=== PATIENT | female | born 1995 | race Caucasian/White ===

== ENCOUNTER 2017-12-25 22:22 | Emergency (ER) | payer BC ==
--- NOTE | 2017-12-25 23:12 | EDM.PDOC ---
ED HPI GENERAL MEDICAL PROBLEM - General Chief Complaint: ENT Problem Stated Complaint: PUPILS ARE DIFFERENT A SIZE Time Seen by Provider: 12/25/17 22:33 Source of Information: Reports: Patient History Limitations: Reports: No Limitations - History of Present Illness INITIAL COMMENTS - FREE TEXT/NARRATIVE: The patient states that her left eye was itching this past 12/21/2017. She instilled Opcon-A eye drops into the left eye. She states that later that day, she found her left eye vision to be blurry, and when she looked in the mirror, she found that her left pupil was larger than her right. Later that day , she had left eye pain and a headache, consistent with her frequent migraines. She took an Imitrex, which improved the pain, and her pupils returned to equal size. On 12/22/2017, she was feeling well until 14:00, when she again developed pain in her left eye along with left sided head pressure. She had a coworker check her pupils, and was told that they were of equal size, but that they both had a "sluggish reaction". On Saturday evening, 12/23/2017, she went to the walk-in clinic. She was not seen, but was directed to the information writer at [facility]. The information writer found that the patient's left pupil was larger than the right, and recommended that the patient follow-up with either neurology or an research development director. On 12/24/2017, the patient states that she saw spots in her periphery. The patient then saw the research development director Dr. Beaulieu, in [place], [facility]. According to the patient, the eye exam is completely normal, with normal eye pressures. The patient states that after her ophthalmologic examination, she. Some eye twitching, occasional lightheadedness, and nausea for about 2 minutes. Tonight, the patient again found her left pupil to be larger than her right, and felt pressure in both of her eyes, prompting her to come to the ED. The patient's PCP was Lisa Velazquez. She does not currently have a PCP. Headache Pain Score (Numeric/FACES): 4 - Related Data Allergies Allergy/AdvReac Type Severity Reaction Status Date / Time No Known Allergies Allergy Verified 11/19/13 11:14 Home Meds: Home Meds Norethindrone-E.estradiol-Iron [Junel Fe 1.5 MG-30 MCG] 1 tab PO BEDTIME [History] Venlafaxine HCl [Venlafaxine ER] 75 mg PO BEDTIME 11/19/13 [History] Venlafaxine HCl [Venlafaxine ER] 150 mg PO BEDTIME 11/19/13 [History] Acetaminophen/HYDROcodone [Lortab 500-10 MG] 1 tab PO ASDIRECTED PRN 11/26/13 [ History] Cefuroxime [Ceftin] 500 mg PO BID 11/26/13 [History] Ondansetron [Zofran] 4 mg BUCCAL Q6H PRN #5 tab 11/26/13 [Rx] Promethazine [Phenergan] 25 mg PO Q4H PRN 11/26/13 [History] metroNIDAZOLE [Flagyl] 500 mg PO Q8H #24 tab 11/26/13 [Rx] Past Medical History Neurological History: Reports: Migraines Psychiatric History: Reports: Anxiety - Past Surgical History HEENT Surgical History: Reports: Oral Surgery (wisdom teeth extraction), Tonsillectomy Social & Family History - Tobacco Use Smoking Status *Q: Never Smoker - Alcohol Use Alcohol Use History: Yes Days Per Week of Alcohol Use: 2 Number of Drinks Per Day: 3 Total Drinks Per Week: 6 Alcohol Use Frequency: Socially - Recreational Drug Use Recreational Drug Use: Yes Drug Use in Last 12 Months: Yes Recreational Drug Type: Reports: Marijuana/Hashish (last smoked 12/21/2017) - Living Situation & Occupation Living situation: Reports: Single, with Significant Other (Boyfriend) 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 ED EXAM, GENERAL - Physical Exam Exam: See Below Exam Limited By: No Limitations General Appearance: Alert, WD/WN, No Apparent Distress Eye Exam: Bilateral Eye: EOMI, Other (right pupil 5 mm, left 6 mm under light conditions, right pupil 7 or 8 mm, left 8 mm under dark conditions) Course - Vital Signs Last Recorded V/S: Last Vital Signs Temp 36.5 C 12/25/17 22:28 Pulse 85 12/25/17 22:28 Resp 18 12/25/17 22:28 BP 147/107 H 12/25/17 22:28 Pulse Ox 98 12/25/17 22:28 - Re-Assessments/Exams Free Text/Narrative Re-Assessment/Exam: 12/25/17 23:04 The patient's right pupil is slightly smaller than her left under light conditions, approximately 5 mm versus 6 mm, and approximately 7 mm versus [address] conditions, although both pupils respond to light and could have been the same size at 8 mm. This vaguely suggests a parasympathetic lesion on the left eye, however, since both of the pupils respond to light, and the fact that the anticipatory it is episodic, I doubt that there is a third cranial nerve lesion. It is doubtful that this is the result of the Opcon-A eye drops that the patient placed in her left eye on Saturday, either, as anisocoria is not a known side effect of that medicine. I think it is far more likely that what we are witnessing is due to migraine. In every case when the patient has experienced this, she has also had at least some headache or facial pressure. The patient states that she has never had an imaging study of her head - either CT or MRI. I think the patient would benefit from an imaging study of her head, but given her young age, I think a MRI would be preferable. I will therefore refer the patient to Myra Hdz, who can order an outpatient MRI of the head. Departure - Departure Time of Disposition: 23:12 Disposition: Home, Self-Care 01 Condition: Good Clinical Impression: Episodic anisocoria - Discharge Information *PRESCRIPTION DRUG MONITORING PROGRAM REVIEWED*: Not Applicable *COPY OF PRESCRIPTION DRUG MONITORING REPORT IN PATIENT HODAN: Not Applicable Referrals: Myra Hdz PA [Physician Picker / Packer] - Forms: ED Department Discharge Additional Instructions: You were seen in the emergency room for episodes of unequal pupils, a condition known as anisocoria. Based on your history and physical examination, your anisocoria is MOST LIKELY due to a migraine, and less likely due to a problem with your third cranial nerve. Nevertheless, we recommend that you get an outpatient MRI of your head. Please follow-up with Myra Hdz in the clinic. She can be your new PCP, and can order an outpatient MRI of your head. If any other problems, please do not hesitate to return to the ER.
== END 2017-12-25 23:21 | disposition home or self-care (01) ==
LOC: JD.ED 22:22
DX: H57.02 Anisocoria (principal)
CPT/HCPCS: 99283

== ENCOUNTER 2018-01-02 22:33 | Emergency (ER) | payer BC ==
--- NOTE | 2018-01-02 23:23 | EDM.PDOC ---
ED HPI GENERAL MEDICAL PROBLEM - General Chief Complaint: ENT Problem Stated Complaint: EYE PROBLEM Time Seen by Provider: 01/02/18 22:46 Source of Information: Reports: Patient, Old Records (ED 12/25/2017), RN Notes Reviewed History Limitations: Reports: No Limitations - History of Present Illness INITIAL COMMENTS - FREE TEXT/NARRATIVE: The patient was seen by me in this ED on 12/25/2017 with a complaint of left anisocoria. It was very subtle on physical examination, and the patient had pupillary reaction to light in both eyes, which spoke against a third cranial nerve palsy. Because the patient had at least some headache or facial pressure whenever she experienced the ansocoria, I suspected that a migraine was likely responsible for it. I recommended a outpatient MRI of the head, and referred her to Myra Hdz. The patient states that she followed up with Ms. Hdz this past Saturday, 2017. She states that work was done, which was all normal, and a outpatient MRI was scheduled for this coming 01/08/2018. She states that a prescription for Imitrex 25 mg was written, however, she has not yet filled the prescription. The patient now returns to the ED stating that she saw some flashing white lights in her right eye and then both eyes this afternoon, that her left pupil has been getting larger and smaller both last week and again today, and she had a headache this morning. She also reports bilateral ear aches this morning, but not associated with the headache. She also reports left eye pain this morning, as well. Left Eye Pain Score (Numeric/FACES): 1 - Related Data Allergies Allergy/AdvReac Type Severity Reaction Status Date / Time No Known Allergies Allergy Verified 01/02/18 22:48 Home Meds: Home Meds . [No Known Home Meds] 01/02/18 [History] Past Medical History Neurological History: Reports: Migraines Psychiatric History: Reports: Anxiety - Past Surgical History HEENT Surgical History: Reports: Oral Surgery (wisdom teeth extraction), Tonsillectomy Social & Family History - Tobacco Use Smoking Status *Q: Never Smoker - Caffeine Use Caffeine Use: Reports: Soda - Alcohol Use Alcohol Use History: Yes Alcohol Use Frequency: Socially - Recreational Drug Use Recreational Drug Use: Yes Drug Use in Last 12 Months: Yes Recreational Drug Type: Reports: Marijuana/Hashish (last smoked 12/28/2017) Recreational Drug Use Frequency: Weekly - Living Situation & Occupation Living situation: Reports: Single, with Significant Other (Boyfriend) 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 ED EXAM, GENERAL - Physical Exam Exam: See Below Exam Limited By: No Limitations General Appearance: Alert, WD/WN, No Apparent Distress Eye Exam: Bilateral Eye: EOMI, Normal Inspection (Pupils 7 mm bilaterally), PERRL Nose: Normal Inspection Throat/Mouth: Normal Inspection, Normal Lips, Normal Voice, No Airway Compromise Head: Atraumatic, Normocephalic Neck: Normal Inspection, Full Range of Motion Respiratory/Chest: No Respiratory Distress, Lungs Clear, Normal Breath Sounds, No Accessory Muscle Use Cardiovascular: Normal Peripheral Pulses, Regular Rate, Rhythm, No Edema, No Gallop, No JVD, No Murmur, No Rub Peripheral Pulses: 4+: Radial (L), Radial (R) GI/Abdominal: Normal Bowel Sounds, Soft, Non-Tender, No Organomegaly, No Distention, No Abnormal Bruit, No Mass (Female) Exam: Deferred Rectal (Female) Exam: Deferred Extremities: Normal Inspection, Normal Range of Motion, No Pedal Edema, Normal Capillary Refill Neurological: Alert, Oriented, CN II-XII Intact, Normal Cognition, No Motor/ Sensory Deficits Psychiatric: Normal Affect Skin Exam: Warm, Dry, Intact, Normal Color, No Rash Course - Vital Signs Last Recorded V/S: Last Vital Signs Temp 36.3 C 01/02/18 22:43 Pulse 73 01/02/18 22:43 Resp 18 01/02/18 22:43 BP 138/96 H 01/02/18 22:43 Pulse Ox 100 01/02/18 22:43 - Re-Assessments/Exams Free Text/Narrative Re-Assessment/Exam: 01/02/18 23:17 The patient re-presents to the ED with a complaint of her left pupil changing size, along with seeing flashing lights, headache, an earache, and left eye pain. As was the case when I saw the patient on 12/25/2017, I suspect that her symptoms are due to a migraine, and while the patient has been prescribed Imitrex, she has not filled the prescription. She has a MRI scheduled for 01/08/2018. As before, I think a MRI is an appropriate test, as it has high sensitivity and no risk of radiation. I do not think that we can justify a CT scan of the head tonight, as she is asymptomatic and her physical examination at this time is completely normal, therefore it is highly unlikely that a CT scan would change her immediate management, and at the same time would expose her to avoidable radiation. At this time, I do not see a reason to change the current plan of evaluation. Departure - Departure Time of Disposition: 23:20 Disposition: Home, Self-Care 01 Condition: Good Clinical Impression: Episodic anisocoria - Discharge Information *PRESCRIPTION DRUG MONITORING PROGRAM REVIEWED*: Not Applicable *COPY OF PRESCRIPTION DRUG MONITORING REPORT IN PATIENT HODAN: Not Applicable Instructions: Migraine Headache, [id number]-[id number] Referrals: Myra Hdz PA [Primary Care Provider] - Forms: ED Department Discharge Additional Instructions: You were seen in the emergency room for continued episodes of your left pupil changing sizes, along with episodes of seeing flashing lights, a headache, earache, and left eye pain. Based on your history and physical examination, your symptoms are MOST LIKELY due to a migraine. We recommend that you fill your prescription for Imitrex and take it as prescribed. We recommend that you undergo the MRI of your head as currently scheduled on 01/08/2018. If any other problems, please do not hesitate to return to the ER.
== END 2018-01-02 23:42 | disposition home or self-care (01) ==
LOC: JD.ED 22:33
DX: H57.02 Anisocoria (principal)
CPT/HCPCS: 99283

== ENCOUNTER 2020-03-01 06:32 | Inpatient (IN) | payer BC, MEDICAID ==
[~2020-03-01 06:32] MED LIST: Bupivacaine 0.25% 10 ML SDV ONE; ePHEDrine Sulfate/0.9% NaCl/Pf 25 MG/5 ML SYRINGE IV ONE
[2020-03-01] MEDS ORDERED: Nalbuphine 10 MG/1 ML Vial IVPUSH PRN (06:57)
[2020-03-01] MEDS ORDERED: Ondansetron 4 MG/2 ML SDV IVPUSH PRN (06:57)
[2020-03-01] MEDS ORDERED: Sodium Chloride 0.9% 10 ML Syringe FLUSH PRN (06:57)
--- NOTE | 2020-03-01 06:58 | PCM.LDHP ---
L&D History of Present Illness - General Date of Service: 03/01/20 Admit Problem/Dx: Patient Status Order with Admit Dx/Problem 03/01/20 06:44 Patient Status [ADT] Routine Admission Diagnosis/Problem Admission Diagnosis/Problem Source of Information: Patient History Limitations: Reports: No Limitations - History of Present Illness Introduction:: Patient is a 24 y/o at 39 3/7 wks who presents in early labor. Yesterday in clinic was checked and found to be about 3 cm dilated. Requested membrane sweeping which was done. States contractions started at 6 PM. Moderate in intensity. Some on and off wetness. 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 Para: 0 Neurological History: Reports: Migraines Psychiatric History: Reports: Anxiety, Depression - Past Surgical History HEENT Surgical History: Reports: Oral Surgery (wisdom teeth extraction), Tonsillectomy Musculoskeletal Surgical History: Reports: Other (See Below) (wrist surgery) Social & Family History - Tobacco Use Tobacco Use Status *Q: Never Tobacco User - Caffeine Use Caffeine Use: Reports: Soda - Alcohol Use Alcohol Use History: No - Recreational Drug Use Recreational Drug Use: No - Living Situation & Occupation Living situation: Reports: Single, with Significant Other (Boyfriend) 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[employer]) H&P Review of Systems - Review of Systems: Review Of Systems: See Below General: Reports: No Symptoms Pulmonary: Reports: No Symptoms Cardiovascular: Reports: No Symptoms Gastrointestinal: Reports: Abdominal Pain (contractions ) Genitourinary: Reports: No Symptoms Musculoskeletal: Reports: No Symptoms Psychiatric: Reports: No Symptoms Neurological: Reports: No Symptoms L&D Exam - Exam Exam: See Below - Vital Signs Vital Signs: Last Vital Signs Temp 36.6 C 03/01/20 06:44 Pulse 84 03/01/20 06:44 Resp 16 03/01/20 06:44 BP 129/75 03/01/20 06:44 Pulse Ox 99 03/01/20 06:44 Weight: 90.809 kg - OB Specific Contraction Intensity: Mild to Moderate Movement: Active Heart Tones: Present Heart Tones per Min: 135 Heart Rate (FHR) Variability: Moderate (6-25 bmp) Presentation: Vertex - Ybarra Score Ybarra Score Cervix Position: Midposition Ybarra Score Consistency: Soft Ybarra Score Effacement: 51-70% Ybarra Score Dilation: 3-4 cm (4-5) Ybarra Score Infant's Station: -3 Ybarra Score Total: 7 - Exam General: Alert, Oriented, Cooperative Lungs: Clear to Auscultation, Normal Respiratory Effort Cardiovascular: Regular Rate, Regular Rhythm GI/Abdominal Exam: Soft, Non-Tender Genitourinary: Normal external exam Back Exam: Normal Inspection Extremities: Normal Inspection Skin: Warm, Dry, Intact - Patient Data Result Diagrams: 03/01/20 07:06 - Problem List (1) 39 weeks gestation of SNOMED Code(s): 39101121 ICD Code: Z3A.39 - 39 WEEKS GESTATION OF Status: Acute Current Visit: Yes (2) Rh negative state in antepartum period SNOMED Code(s): 512901533 ICD Code: O26.899 - OTH RELATED CONDITIONS, UNSPECIFIED TRIMESTER; Z67.91 - UNSPECIFIED BLOOD TYPE, RH NEGATIVE Status: Acute Current Visit: Yes Problem List Initiated/Reviewed/Updated: Yes Orders Last 24hrs: Active Orders 24 hr Category Date Time Status Patient Status [ADT] Routine ADT 03/01/20 06:44 Active Activity as Tolerated [RC] PFP Care 03/01/20 06:57 Ordered Communication Order [RC] ASDIRECTED Care 03/01/20 06:57 Ordered Heart Tones [RC] ASDIRECTED Care 03/01/20 06:57 Ordered Non Stress Test [RC] PER UNIT ROUTINE Care 03/01/20 06:44 Active Non Stress Test [RC] PER UNIT ROUTINE Care 03/01/20 06:57 Ordered Notify Provider [RC] PFP Care 03/01/20 06:57 Ordered Notify Provider [RC] PRN Care 03/01/20 06:57 Ordered Peripheral IV Care [RC] . DIRECTED Care 03/01/20 06:57 Ordered Vital Signs [RC] PER UNIT ROUTINE Care 03/01/20 06:44 Active Vital Signs [RC] PER UNIT ROUTINE Care 03/01/20 06:57 Ordered Regular Diet [DIET] Diet 03/01/20 Breakfast Ordered AMNISURE RUPTURE MEMBRAN [BF] Stat Lab 03/01/20 06:44 Ordered CBC W/O DIFF,HEMOGRAM [HEME] Routine Lab 03/01/20 06:57 Ordered RAPID PLASMA REAGIN,RPR [CHEM] Routine Lab 03/01/20 06:57 Ordered TYPE AND SCREEN [BBK] Routine Lab 03/01/20 06:57 Ordered Lactated Ringers [Ringers, Lactated] 1,000 ml Med 03/01/20 07:00 Ordered IV ASDIRECTED Nalbuphine [Nubain] Med 03/01/20 06:57 Ordered 10 mg IVPUSH Q2H PRN Ondansetron [Zofran] Med 03/01/20 06:57 Ordered 4 mg IVPUSH Q4H PRN Oxytocin/Lactated Ringers [Pitocin in LR 10 Units/1,000 Med 03/01/20 07:00 Ordered ML] 10 unit in 1,000 ml IV .CONTINUOUS Sodium Chloride 0.9% [Saline Flush] Med 03/01/20 06:57 Ordered 10 ml FLUSH ASDIRECTED PRN Electronic Heart Tones Ext w TOCO [WOMSER] Oth 03/01/20 06:57 Ordered Routine Electronic Heart Tones Internal [WOMSER] Per Unit Oth 03/01/20 06:57 Ordered Routine Peripheral IV Insertion Adult [OM.PC] Routine Oth 03/01/20 06:57 Ordered Resuscitation Status Routine Resus Stat 03/01/20 06:44 Ordered Assessment/Plan Comment:: * Amnisure done and negative, but with good change from yesterday clinic appt * Will allow pt to continue to labor on own. If needed can consider augmentation with AROM * Labs * GBS negative * Pain management per patient preference * Anticipate
[2020-03-01] MEDS ORDERED: Oxytocin/Lactated Ringers 10 UNIT/1,000 ML BAG IV SCH ×2 (07:00→15:00)
[2020-03-01] MEDS ORDERED: Bupivacaine/fentaNYL/NS 100 ML Bag EPIDUR PRN (07:21)
[2020-03-01] MEDS ORDERED: ePHEDrine 50 MG/ML SDV IVPUSH PRN (07:21)
[2020-03-01] MEDS ORDERED: fentaNYL 100 MCG/2 ML SDV EPIDUR PRN (07:21)
[2020-03-01] MEDS ORDERED: diphenhydrAMINE 50 MG/ML SDV IVPUSH PRN (07:21)
[2020-03-01] MEDS: Lactated Ringers 1,000 ML IV SCH ×4 (12:15→14:35)
--- NOTE | 2020-03-01 13:21 | PCM.PREANE ---
Preanesthetic Assessment - Procedure Proposed Procedure: Epidural - Anesthesia/Transfusion/Family Hx Anesthesia History: Prior Anesthesia Without Reaction Family History of Anesthesia Reaction: No Transfusion History: No Prior Transfusion(s) - Review of Systems General: Fatigue Pulmonary: No Symptoms Cardiovascular: No Symptoms Gastrointestinal: Abdominal Pain (labor) Neurological: No Symptoms Other: Reports: None - Physical Assessment Vital Signs: Last Vital Signs Temp 36.6 C 03/01/20 06:44 Pulse 84 03/01/20 06:44 Resp 16 03/01/20 06:44 BP 129/75 03/01/20 06:44 Pulse Ox 99 03/01/20 06:44 Height: 1.63 m Weight: 90.809 kg ASA Class: 2 Mental Status: Alert & Oriented x3 Airway Class: Mallampati = 1 Dentition: Reports: Normal Dentition Thyro-Mental Finger Breadths: 3 Mouth Opening Finger Breadths: 3 ROM/Head Extension: Full Lungs: Clear to Auscultation, Normal Respiratory Effort Cardiovascular: Regular Rate, Regular Rhythm - Lab Values: Laboratory Last Values WBC 13.33 K/mm3 (3.98-10.04) H 03/01/20 07:06 RBC 3.93 M/mm3 (3.98-5.22) L 03/01/20 07:06 Hgb 10.9 gm/dl (11.2-15.7) L D 03/01/20 07:06 Hct 33.8 % (34.1-44.9) L 03/01/20 07:06 MCV 86.0 fl (79.4-94.8) D 03/01/20 07:06 MCH 27.7 pg (25.6-32.2) 03/01/20 07:06 MCHC 32.2 g/dl (32.2-35.5) 03/01/20 07:06 RDW Std Deviation 42.3 fL (36.4-46.3) 03/01/20 07:06 Plt Count 309 K/mm3 (182-369) 03/01/20 07:06 MPV 9.8 fl (9.4-12.3) 03/01/20 07:06 Membrane Rupture Negative 03/01/20 06:51 SARS-CoV-2 RNA (NALLELY) Negative (NEGATIVE) 03/01/20 07:23 Blood Type AB NEGATIVE 03/01/20 07:06 Gel Antibody Screen Positive 03/01/20 07:06 - Allergies Allergies/Adverse Reactions: Allergies Allergy/AdvReac Type Severity Reaction Status Date / Time No Known Allergies Allergy Verified 03/01/20 06:45 - Anesthesia Plan Pre-Op Medication Ordered: None - Acknowledgements Anesthesia Type Planned: Epidural Pt an Appropriate Candidate for the Planned Anesthesia: Yes Alternatives and Risks of Anesthesia Discussed w Pt/Guardian: Yes Pt/Guardian Understands and Agrees with Anesthesia Plan: Yes PreAnesthesia Questionnaire Gastrointestinal History: Reports: GERD 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: Neurological History: Reports: Migraines Psychiatric History: Reports: Anxiety, Depression Endocrine/Metabolic History: Reports: Obesity/BMI 30+ - Past Surgical History HEENT Surgical History: Reports: Oral Surgery (wisdom teeth extraction), Tonsillectomy Musculoskeletal Surgical History: Reports: Other (See Below) (wrist surgery) - SUBSTANCE USE Tobacco Use Status *Q: Never Tobacco User Second Hand Smoke Exposure: No Recreational Drug Use History: No - HOME MEDS Home Medications: Home Meds Vits #93/Iron Fum/FA [ Formula Tablet] 1 tab PO DAILY 03/01/20 [History] - CURRENT (IN HOUSE) MEDS Current Meds: Current Medications Diphenhydramine HCl (Benadryl) 25 mg IVPUSH Q6H PRN PRN Reason: pruritis Ephedrine Sulfate (Ephedrine Sulfate) 5 mg IVPUSH ASDIRECTED PRN PRN Reason: Hypotension Fentanyl (Sublimaze) 100 mcg EPIDUR Q3H PRN PRN Reason: Pain Last Admin: 03/01/20 12:56 Dose: 100 mcg Documented by: Fentanyl/Bupivacaine HCl (Fentanyl/Bupivacaine/Ns 2 Mcg-0.125% 100 Ml) 100 ml EPIDUR ASDIRECTED PRN PRN Reason: Pain Last Admin: 03/01/20 12:56 Dose: 100 ml Documented by: Lactated Ringer's (Ringers, Lactated) 1,000 mls @ 100 mls/hr IV ASDIRECTED TRINITY Last Admin: 03/01/20 12:57 Dose: 999 mls/hr Documented by: Oxytocin/Lactated Ringer's (Pitocin In Lr 10 Units/1,000 Ml) 10 unit in 1,000 mls @ 500 mls/hr IV .CONTINUOUS TRINITY Nalbuphine HCl (Nubain) 10 mg IVPUSH Q2H PRN PRN Reason: Pain Ondansetron HCl (Zofran) 4 mg IVPUSH Q4H PRN PRN Reason: Nausea/Vomiting Sodium Chloride (Saline Flush) 10 ml FLUSH ASDIRECTED PRN PRN Reason: Keep Vein Open
--- NOTE | 2020-03-01 20:31 | PCM.DEL ---
L & D Note - General Info Date of Service: 03/01/20 - Delivery Note Labor: Augmented by ARM, Augmented by Oxytocin Delivery Outcome: Livebirth Infant Delivery Method: Spontaneous Vaginal Delivery-Single Delivery Mode: Spontaneous Presentation: Right Occiput Anterior ([place]) Nuchal Cord: Present, Reduced Anesthesia Type: Epidural Amniotic Fluid Description: Clear Episiotomy Type: None Laceration: None Placenta: Intact, Spontaneous Cord: 3 Vessels Estimated Blood Loss: 200 : Bulb Syringe, Stimulated, Warmed, [place] Used, Warmer Used Delivery Comments (Free Text/Narrative):: Patient found to be complete and began pushing. With maternal pushing effort head delivered from an [place] presentation. Nuchal cord present and reduced. With gentle downward traction the shoulders and body delivered. placed on maternal abdomen. Cord clamped and cut. Cord blood obtained. Placenta allowed time to separate and expelled intact. Inspection of perineum showed no lacerations - General Info Date of Service: 03/01/20 - Patient Data Vitals - Most Recent: Last Vital Signs Temp 36.6 C 03/01/20 06:44 Pulse 84 03/01/20 06:44 Resp 16 03/01/20 06:44 BP 129/75 03/01/20 06:44 Pulse Ox 99 03/01/20 06:44 Weight - Most Recent: 90.809 kg I&O - Last 24 Hours: Intake & Output 03/01/20 03/01/20 03/01/20 06:59 14:59 22:59 Intake Total 240 4000 Output Total 1150 Balance 240 2850 Med Orders - Current: - Problem List & Annotations (1) 39 weeks gestation of SNOMED Code(s): 42194591 Code(s): Z3A.39 - 39 WEEKS GESTATION OF Status: Acute Current Visit: Yes (2) Rh negative state in antepartum period SNOMED Code(s): 557382630 Code(s): O26.899 - OTH RELATED CONDITIONS, UNSPECIFIED TRIMESTER; Z67.91 - UNSPECIFIED BLOOD TYPE, RH NEGATIVE Status: Acute Current Visit: Yes (3) Vaginal delivery SNOMED Code(s): 877489409 Code(s): O80 - ENCOUNTER FOR FULL-TERM UNCOMPLICATED DELIVERY Status: Acute Current Visit: Yes - Problem List Review Problem List Initiated/Reviewed/Updated: Yes - My Orders Last 24 Hours: My Active Orders 03/01/20 06:44 Patient Status [ADT] Routine Non Stress Test [RC] PER UNIT ROUTINE Vital Signs [RC] PER UNIT ROUTINE Resuscitation Status Routine 03/01/20 06:57 Activity as Tolerated [RC] PFP Communication Order [RC] ASDIRECTED Heart Tones [RC] ASDIRECTED Non Stress Test [RC] PER UNIT ROUTINE Notify Provider [RC] PFP Notify Provider [RC] PRN Peripheral IV Care [RC] . DIRECTED Vital Signs [RC] PER UNIT ROUTINE Nalbuphine [Nubain] 10 mg IVPUSH Q2H PRN Ondansetron [Zofran] 4 mg IVPUSH Q4H PRN Sodium Chloride 0.9% [Saline Flush] 10 ml FLUSH ASDIRECTED PRN Electronic Heart Tones Ext w TOCO [WOMSER] Routine Electronic Heart Tones Internal [WOMSER] Per Unit Routine Peripheral IV Insertion Adult [OM.PC] Routine 03/01/20 Breakfast Regular Diet [DIET] Lactated Ringers [Ringers, Lactated] 1,000 ml IV ASDIRECTED Oxytocin/Lactated Ringers [Pitocin in LR 10 Units/1,000 ML] 10 unit in 1,000 ml IV .CONTINUOUS 03/01/20 07:06 ANTIBODY IDENTIFICATION [BBK] Routine RAPID PLASMA REAGIN,RPR [CHEM] Routine TYPE AND SCREEN [BBK] Routine 03/01/20 12:26 Admission Status [Patient Status] [ADT] Routine 03/01/20 15:00 Oxytocin/Lactated Ringers [Pitocin in LR 10 Units/1,000 ML] 10 unit in 1,000 ml IV TITRATE - Assessment Assessment:: PPD#0 - Plan Plan:: * Routine cares * Breast feeding * Discharge home in 1-2 days
[2020-03-01] MEDS ORDERED: Benzocaine/Menthol 20%-0.5% Spray 56 GM Canister TOP PRN (20:59)
[2020-03-01] MEDS ORDERED: Docusate Sodium 100 MG Cap PO PRN (20:59)
[2020-03-01] MEDS: Witch Hazel Medicated Pads 40/Jar TOP PRN (22:09)
[2020-03-01] MEDS: Ibuprofen 600 MG Tab PO PRN (22:16)
[2020-03-02] MEDS: Acetaminophen 325 MG Tab PO PRN ×4 (01:55→22:35)
[2020-03-02] MEDS: Ibuprofen 600 MG Tab PO PRN ×3 (05:48→19:35)
--- NOTE | 2020-03-02 07:08 | PCM.PNPP ---
- General Info Date of Service: 03/02/20 Functional Status: Reports: Pain Controlled, Tolerating Diet, Ambulating, Urinating - Review of Systems General: Reports: No Symptoms Pulmonary: Reports: No Symptoms Cardiovascular: Reports: No Symptoms Gastrointestinal: Reports: No Symptoms Genitourinary: Reports: Other (some perineal discomfort ) Musculoskeletal: Reports: Back Pain Neurological: Reports: No Symptoms - Patient Data Vital Signs - Most Recent: Last Vital Signs Temp 36.9 C 03/02/20 02:11 Pulse 88 03/02/20 02:11 Resp 18 03/02/20 02:11 BP 122/73 03/02/20 02:11 Pulse Ox 98 03/02/20 02:11 Weight - Most Recent: 90.809 kg I&O - Last 24 Hours: Intake & Output 03/01/20 03/02/20 03/02/20 22:59 06:59 14:59 Intake Total 5000 Output Total 1150 Balance 3850 Lab Results - Last 24 Hours: Laboratory Results - last 24 hr 03/01/20 03/01/20 03/01/20 Range/Units 06:51 07:06 07:06 WBC 13.33 H (3.98-10.04) K/mm3 RBC 3.93 L (3.98-5.22) M/mm3 Hgb 10.9 L D (11.2-15.7) gm/dl Hct 33.8 L (34.1-44.9) % MCV 86.0 D (79.4-94.8) fl MCH 27.7 (25.6-32.2) pg MCHC 32.2 (32.2-35.5) g/dl RDW Std Deviation 42.3 (36.4-46.3) fL Plt Count 309 (182-369) K/mm3 MPV 9.8 (9.4-12.3) fl Membrane Rupture Negative RPR Non-reactive (NONREACTIVE) SARS-CoV-2 RNA (NALLELY) (NEGATIVE) Blood Type Gel Antibody Screen 03/01/20 03/01/20 Range/Units 07:06 07:23 WBC (3.98-10.04) K/mm3 RBC (3.98-5.22) M/mm3 Hgb (11.2-15.7) gm/dl Hct (34.1-44.9) % MCV (79.4-94.8) fl MCH (25.6-32.2) pg MCHC (32.2-35.5) g/dl RDW Std Deviation (36.4-46.3) fL Plt Count (182-369) K/mm3 MPV (9.4-12.3) fl Membrane Rupture RPR (NONREACTIVE) SARS-CoV-2 RNA (NALLELY) Negative (NEGATIVE) Blood Type AB NEGATIVE Gel Antibody Screen Positive Med Orders - Current: Current Medications Acetaminophen (Tylenol) 650 mg PO Q4H PRN PRN Reason: mild pain or fever Last Admin: 03/02/20 01:55 Dose: 650 mg Documented by: Benzocaine/Menthol (Dermoplast Pain Relief [place]) 0 gm TOP ASDIRECTED PRN PRN Reason: Perineal Comfort Measure Last Admin: 03/01/20 22:08 Dose: 1 applic Documented by: Docusate Sodium (Colace) 100 mg PO BID PRN PRN Reason: Constipation Ibuprofen (Motrin) 600 mg PO Q6H PRN PRN Reason: Mild pain or fever Last Admin: 03/02/20 05:48 Dose: 600 mg Documented by: Andra Gonzalez (Christian) 1 pad TOP ASDIRECTED PRN PRN Reason: Perineal Comfort Measure Last Admin: 03/01/20 22:09 Dose: 1 applic Documented by: Discontinued Medications Diphenhydramine HCl (Benadryl) 25 mg IVPUSH Q6H PRN PRN Reason: pruritis Ephedrine Sulfate (Ephedrine Sulfate) 5 mg IVPUSH ASDIRECTED PRN PRN Reason: Hypotension Fentanyl (Sublimaze) 100 mcg EPIDUR Q3H PRN PRN Reason: Pain Last Admin: 03/01/20 12:56 Dose: 100 mcg Documented by: Fentanyl/Bupivacaine HCl (Fentanyl/Bupivacaine/Ns 2 Mcg-0.125% 100 Ml) 100 ml EPIDUR ASDIRECTED PRN PRN Reason: Pain Last Admin: 03/01/20 12:56 Dose: 100 ml Documented by: Lactated Ringer's (Ringers, Lactated) 1,000 mls @ 100 mls/hr IV ASDIRECTED TRINITY Last Admin: 03/01/20 14:35 Dose: 999 mls/hr Documented by: Oxytocin/Lactated Ringer's (Pitocin In Lr 10 Units/1,000 Ml) 10 unit in 1,000 mls @ 500 mls/hr IV .CONTINUOUS TRINITY Oxytocin/Lactated Ringer's (Pitocin In Lr 10 Units/1,000 Ml) 10 unit in 1,000 mls @ 12 mls/hr IV TITRATE TRINITY; Protocol Last Titration: 03/01/20 20:21 Dose: 83.33 munits/min, 499.98 mls/hr Documented by: Nalbuphine HCl (Nubain) 10 mg IVPUSH Q2H PRN PRN Reason: Pain Ondansetron HCl (Zofran) 4 mg IVPUSH Q4H PRN PRN Reason: Nausea/Vomiting Sodium Chloride (Saline Flush) 10 ml FLUSH ASDIRECTED PRN PRN Reason: Keep Vein Open - Infant Interaction Infant Disposition, : [place] in Room with Family Interaction: Holding Feeding: Attempted ; Nursed Fair/Poor Support Person: Significant Other - Recovery Exam Fundal Tone: Firm Fundal Level: At Umbilicus Fundal Placement: Midline Lochia Amount: Small, Moderate Lochia Color: Rubra/Red Perineum Description: Intact, Minimal Bruising/Swelling, Edematous Episiotomy/Laceration: None Bladder Status: Voiding - Exam General: Alert, Oriented, Cooperative GI/Abdominal Exam: Soft, Non-Tender Extremities: Normal Inspection Skin: Warm, Dry, Intact - Problem List & Annotations (1) 39 weeks gestation of SNOMED Code(s): 40907000 Code(s): Z3A.39 - 39 WEEKS GESTATION OF Status: Acute Current Visit: Yes (2) Rh negative state in antepartum period SNOMED Code(s): 390409215 Code(s): O26.899 - OTH RELATED CONDITIONS, UNSPECIFIED TRIMESTER; Z67.91 - UNSPECIFIED BLOOD TYPE, RH NEGATIVE Status: Acute Current Visit: Yes (3) Vaginal delivery SNOMED Code(s): 271250433 Code(s): O80 - ENCOUNTER FOR FULL-TERM UNCOMPLICATED DELIVERY Status: Acute Current Visit: Yes - Problem List Review Problem List Initiated/Reviewed/Updated: Yes - My Orders Last 24 Hours: My Active Orders 03/01/20 06:44 Resuscitation Status Routine 03/01/20 07:06 ANTIBODY IDENTIFICATION [BBK] Routine SCREEN [BBK] Routine RH IMMUNE GLOBULIN [BBK] Routine TYPE AND SCREEN [BBK] Routine 03/01/20 Dinner Regular Diet [DIET] 03/01/20 20:59 Acetaminophen [TylenoL] 650 mg PO Q4H PRN Benzocaine/Menthol [Dermoplast Pain Relief [place]] See Dose Instructions TOP ASDIRECTED PRN Docusate Sodium [Colace] 100 mg PO BID PRN Ibuprofen [Motrin] 600 mg PO Q6H PRN witch Fabiano [Tucks] 1 pad TOP ASDIRECTED PRN Heat Therapy [OM.PC] PRN 03/01/20 20:59 Activity as Tolerated [RC] PER UNIT ROUTINE Vital Signs [RC] 03,09,15,21 Assess Lochia [WOMSER] Per Unit Routine Assess Uterine Involution [WOMSER] Per Unit Routine Breast Pump [WOMSER] Per Unit Routine Ice Therapy [OM.PC] Per Unit Routine Perineal Care [OM.PC] Per Unit Routine Peripheral IV Discontinue [OM.PC] Routine Sitz Bath [OM.PC] Per Unit Routine 03/02/20 20:59 Heat Therapy [OM.PC] PRN - Assessment Assessment:: PPD#1 - Plan Plan:: * Routine cares * Breast feeding * Discharge home tomorrow
[2020-03-02] MEDS: Witch Hazel Medicated Pads 40/Jar TOP PRN (19:48)
[2020-03-03] MEDS: Ibuprofen 600 MG Tab PO PRN ×3 (01:33→14:33)
[2020-03-03] MEDS: Acetaminophen 325 MG Tab PO PRN ×2 (03:01→13:24)
--- NOTE | 2020-03-03 07:16 | PCM.PNPP ---
- General Info Date of Service: 03/03/20 Functional Status: Reports: Pain Controlled, Tolerating Diet, Ambulating, Urinating - Review of Systems General: Reports: No Symptoms Pulmonary: Reports: No Symptoms Cardiovascular: Reports: No Symptoms Gastrointestinal: Reports: No Symptoms Genitourinary: Reports: No Symptoms Musculoskeletal: Reports: No Symptoms Neurological: Reports: No Symptoms Psychiatric: Reports: No Symptoms - Patient Data Vital Signs - Most Recent: Last Vital Signs Temp 36.1 C 03/03/20 02:47 Pulse 88 03/03/20 02:47 Resp 14 03/03/20 02:47 BP 116/68 03/03/20 02:47 Pulse Ox 95 03/03/20 02:47 Weight - Most Recent: 90.809 kg I&O - Last 24 Hours: Intake & Output 03/02/20 03/03/20 03/03/20 22:59 06:59 14:59 Intake Total 240 Balance 240 Lab Results - Last 24 Hours: Laboratory Results - last 24 hr 03/01/20 Range/Units 07:06 Blood Type AB NEGATIVE Gel Antibody Screen Positive Screen 1 ros/5 flds - neg RhIG Candidate? Yes Med Orders - Current: Current Medications Acetaminophen (Tylenol) 650 mg PO Q4H PRN PRN Reason: mild pain or fever Last Admin: 03/03/20 03:01 Dose: 650 mg Documented by: Benzocaine/Menthol (Dermoplast Pain Relief [place]) 0 gm TOP ASDIRECTED PRN PRN Reason: Perineal Comfort Measure Last Admin: 03/01/20 22:08 Dose: 1 applic Documented by: Docusate Sodium (Colace) 100 mg PO BID PRN PRN Reason: Constipation Ibuprofen (Motrin) 600 mg PO Q6H PRN PRN Reason: Mild pain or fever Last Admin: 03/03/20 01:33 Dose: 600 mg Documented by: Andra Gonzalez ([facility]) 1 pad TOP ASDIRECTED PRN PRN Reason: Perineal Comfort Measure Last Admin: 03/02/20 19:48 Dose: 1 applic Documented by: Discontinued Medications Bupivacaine HCl (Sensorcaine-Mpf 0.25%) 10 ml .ROUTE .STK-MED ONE Stop: 03/01/20 00:01 Diphenhydramine HCl (Benadryl) 25 mg IVPUSH Q6H PRN PRN Reason: pruritis Ephedrine Sulfate (Ephedrine Sulfate) 5 mg IVPUSH ASDIRECTED PRN PRN Reason: Hypotension Ephedrine Sulfate (Ephedrine 25 Mg/5 Ml Syringe) [address] ONE Stop: 03/01/20 00:01 Fentanyl (Sublimaze) 100 mcg EPIDUR Q3H PRN PRN Reason: Pain Last Admin: 03/01/20 12:56 Dose: 100 mcg Documented by: Fentanyl/Bupivacaine HCl (Fentanyl/Bupivacaine/Ns 2 Mcg-0.125% 100 Ml) 100 ml EPIDUR ASDIRECTED PRN PRN Reason: Pain Last Admin: 03/01/20 12:56 Dose: 100 ml Documented by: Lactated Ringer's (Ringers, Lactated) 1,000 mls @ 100 mls/hr IV ASDIRECTED TRINITY Last Admin: 03/01/20 14:35 Dose: 999 mls/hr Documented by: Oxytocin/Lactated Ringer's (Pitocin In Lr 10 Units/1,000 Ml) 10 unit in 1,000 mls @ 500 mls/hr IV .CONTINUOUS TRINITY Oxytocin/Lactated Ringer's (Pitocin In Lr 10 Units/1,000 Ml) 10 unit in 1,000 mls @ 12 mls/hr IV TITRATE TRINITY; Protocol Last Titration: 03/01/20 20:21 Dose: 83.33 munits/min, 499.98 mls/hr Documented by: Nalbuphine HCl (Nubain) 10 mg IVPUSH Q2H PRN PRN Reason: Pain Ondansetron HCl (Zofran) 4 mg IVPUSH Q4H PRN PRN Reason: Nausea/Vomiting Sodium Chloride (Saline Flush) 10 ml FLUSH ASDIRECTED PRN PRN Reason: Keep Vein Open - Infant Interaction Disposition, : in Room with Family Infant Interaction: Holding Infant Feeding: Attempted ; Nursed Fair/Poor Support Person: Significant Other - Recovery Exam Fundal Tone: Firm Fundal Level: 1 Fingerbreadths Below Umbilicus Fundal Placement: Midline Lochia Amount: Small Lochia Color: Rubra/Red Perineum Description: Intact, Minimal Bruising/Swelling Episiotomy/Laceration: None Bladder Status: Voiding Urinary Elimination: Voided - Exam General: Alert, Oriented, Cooperative GI/Abdominal Exam: Soft, Non-Tender Extremities: Normal Inspection Skin: Warm, Dry, Intact - Problem List & Annotations (1) 39 weeks gestation of SNOMED Code(s): 15941130 Code(s): Z3A.39 - 39 WEEKS GESTATION OF Status: Acute Current Visit: Yes (2) Rh negative state in antepartum period SNOMED Code(s): 543968547 Code(s): O26.899 - OTH RELATED CONDITIONS, UNSPECIFIED TRIMESTER; Z67.91 - UNSPECIFIED BLOOD TYPE, RH NEGATIVE Status: Acute Current Visit: Yes (3) Vaginal delivery SNOMED Code(s): 863993908 Code(s): O80 - ENCOUNTER FOR FULL-TERM UNCOMPLICATED DELIVERY Status: Acute Current Visit: Yes - Problem List Review Problem List Initiated/Reviewed/Updated: Yes - My Orders Last 24 Hours: My Active Orders 03/02/20 20:59 Heat Therapy [OM.PC] PRN 03/03/20 07:15 Ready for Discharge [RC] PER UNIT ROUTINE - Assessment Assessment:: PPD#2 - Plan Plan:: * Routine cares * Breast feeding * baby Rh positive, has received Rhogam * Discharge home today
--- NOTE | 2020-03-03 07:16 | PCM.DCSUM1 ---
Discharge Summary - Discharge Data Discharge Date: 03/03/20 Discharge Disposition: Home, Self-Care 01 Condition: Good - Referral to Home Health Primary Care Physician: Radha Pereira MD - Discharge Diagnosis/Problem(s) (1) 39 weeks gestation of SNOMED Code(s): 07000623 ICD Code: Z3A.39 - 39 WEEKS GESTATION OF Status: Acute Current Visit: Yes (2) Rh negative state in antepartum period SNOMED Code(s): 285452508 ICD Code: O26.899 - OTH RELATED CONDITIONS, UNSPECIFIED TRIMESTER; Z67.91 - UNSPECIFIED BLOOD TYPE, RH NEGATIVE Status: Acute Current Visit: Yes (3) Vaginal delivery SNOMED Code(s): 170204250 ICD Code: O80 - ENCOUNTER FOR FULL-TERM UNCOMPLICATED DELIVERY Status: Acute Current Visit: Yes - Patient Summary/Data Complications: None Consults: None Recommended Follow-up Testing/Procedures: Follow up in 3 weeks Hospital Course: 24 y/o at 39 3/7 wks who presented in early labor. Augmented with AROM. Progressed well. Underwent an uncomplicated . See delivery note. did well and was discharged home on PPD#2 - Patient Instructions Diet: Regular Diet as Tolerated Activity: As Tolerated Activity, Other: Pelvic rest for 6 weeks Driving: May Drive Today Showering/Bathing: May Shower Showering/Bathing, Other: May Bathe Notify Provider of: Fever, Increased Pain, Swelling and Redness, Drainage, Nausea and/or Vomiting - Discharge Plan *PRESCRIPTION DRUG MONITORING PROGRAM REVIEWED*: No *COPY OF PRESCRIPTION DRUG MONITORING REPORT IN PATIENT HODAN: No Home Medications: Home Meds Vits #93/Iron Fum/FA [ Formula Tablet] 1 tab PO DAILY 03/01/20 [History] Docusate Sodium [Colace] 100 mg PO BID PRN cap 03/03/20 [Rx] witjustine mccartyeL [Tucks] 1 pad TOP ASDIRECTED PRN pad 03/03/20 [Rx] Patient Handouts: Mastitis, Eulj-[id number], Breast Engorgement Referrals: Radha Pereira MD [Primary Care Provider] - (3 weeks, can be telehealth appt) - Discharge Summary/Plan Comment DC Time >30 min.: No - Patient Data Vitals - Most Recent: Last Vital Signs Temp 36.1 C 03/03/20 02:47 Pulse 88 03/03/20 02:47 Resp 14 03/03/20 02:47 BP 116/68 03/03/20 02:47 Pulse Ox 95 03/03/20 02:47 Weight - Most Recent: 90.809 kg I&O - Last 24 hours: Intake & Output 03/02/20 03/03/20 03/03/20 22:59 06:59 14:59 Intake Total 240 Balance 240 Lab Results - Last 24 hrs: Laboratory Results - last 24 hr 03/01/20 Range/Units 07:06 Blood Type AB NEGATIVE Gel Antibody Screen Positive Screen 1 ros/5 flds - neg RhIG Candidate? Yes Med Orders - Current: Current Medications Acetaminophen (Tylenol) 650 mg PO Q4H PRN PRN Reason: mild pain or fever Last Admin: 03/03/20 03:01 Dose: 650 mg Documented by: Benzocaine/Menthol (Dermoplast Pain Relief [place]) 0 gm TOP ASDIRECTED PRN PRN Reason: Perineal Comfort Measure Last Admin: 03/01/20 22:08 Dose: 1 applic Documented by: Docusate Sodium (Colace) 100 mg PO BID PRN PRN Reason: Constipation Ibuprofen (Motrin) 600 mg PO Q6H PRN PRN Reason: Mild pain or fever Last Admin: 03/03/20 01:33 Dose: 600 mg Documented by: Andra Gonzalez ([facility]) 1 pad TOP ASDIRECTED PRN PRN Reason: Perineal Comfort Measure Last Admin: 03/02/20 19:48 Dose: 1 applic Documented by: Discontinued Medications Bupivacaine HCl (Sensorcaine-Mpf 0.25%) 10 ml .ROUTE .STK-MED ONE Stop: 03/01/20 00:01 Diphenhydramine HCl (Benadryl) 25 mg IVPUSH Q6H PRN PRN Reason: pruritis Ephedrine Sulfate (Ephedrine Sulfate) 5 mg IVPUSH ASDIRECTED PRN PRN Reason: Hypotension Ephedrine Sulfate (Ephedrine 25 Mg/5 Ml Syringe) 25 mg IV .STK-MED ONE Stop: 03/01/20 00:01 Fentanyl (Sublimaze) 100 mcg EPIDUR Q3H PRN PRN Reason: Pain Last Admin: 03/01/20 12:56 Dose: 100 mcg Documented by: Fentanyl/Bupivacaine HCl (Fentanyl/Bupivacaine/Ns 2 Mcg-0.125% 100 Ml) 100 ml EPIDUR ASDIRECTED PRN PRN Reason: Pain Last Admin: 03/01/20 12:56 Dose: 100 ml Documented by: Lactated Ringer's (Ringers, Lactated) 1,000 mls @ 100 mls/hr IV ASDIRECTED TRINITY Last Admin: 03/01/20 14:35 Dose: 999 mls/hr Documented by: Oxytocin/Lactated Ringer's (Pitocin In Lr 10 Units/1,000 Ml) 10 unit in 1,000 mls @ 500 mls/hr IV .CONTINUOUS TRINITY Oxytocin/Lactated Ringer's (Pitocin In Lr 10 Units/1,000 Ml) 10 unit in 1,000 mls @ 12 mls/hr IV TITRATE TRINITY; Protocol Last Titration: 03/01/20 20:21 Dose: 83.33 munits/min, 499.98 mls/hr Documented by: Nalbuphine HCl (Nubain) 10 mg IVPUSH Q2H PRN PRN Reason: Pain Ondansetron HCl (Zofran) 4 mg IVPUSH Q4H PRN PRN Reason: Nausea/Vomiting Sodium Chloride (Saline Flush) 10 ml FLUSH ASDIRECTED PRN PRN Reason: Keep Vein Open
[2020-03-03] MEDS: Witch Hazel Medicated Pads 40/Jar TOP PRN (08:56)
== END 2020-03-03 14:45 | disposition home or self-care (01) | DRG 560 ==
LOC: JD.OB 06:32 → JD.OBCHECK 06:32 → JD.OB 12:26 → UNDOADMOB 12:26 → JD.OBCHECK 12:26 → INTOOBSV 20:20 → JD.OB 20:20 → OBSVTOIN 20:20 → UNDODISIN 03-03 14:45
PROVIDERS: ADMIT Obstetrics & Gynecology; ATTEND Obstetrics & Gynecology
PROC: 10E0XZZ Delivery of Products of Conception, External Approach (ICD-10-PCS; principal; 2020-03-01)
PROC: 10907ZC Drainage of Amniotic Fluid, Therapeutic from Products of Conception, Via Natural or Artificial Opening (ICD-10-PCS; 2020-03-01)
PROC: 3E0R3BZ Introduction of Anesthetic Agent into Spinal Canal, Percutaneous Approach (ICD-10-PCS; 2020-03-01)
PROC: 00HU33Z Insertion of Infusion Device into Spinal Canal, Percutaneous Approach (ICD-10-PCS; 2020-03-01)
PROC: 3E0334Z Introduction of Serum, Toxoid and Vaccine into Peripheral Vein, Percutaneous Approach (ICD-10-PCS; 2020-03-01)
DX: O69.81X0 Labor and delivery complicated by cord around neck, without compression, not applicable or unspecified (principal); Z3A.39 39 weeks gestation of pregnancy; Z37.0 Single live birth; Z20.828 Contact with and (suspected) exposure to other viral communicable diseases; O26.893 Other specified pregnancy related conditions, third trimester; Z67.31 Type AB blood, Rh negative
CPT/HCPCS: 01967; 36415; 51702; 59025; 59409; 84112; 85027; 85461; 86592; 86850; 86870; 86900; 86901; A9270-GY; J0171; J2590; J2790; J3010; J3490; J7120; U0002

== ENCOUNTER 2023-11-21 08:37 | Emergency (ER) | payer BC, MEDICAID ==
[2023-11-21] MEDS: Sodium Chloride 0.9% 1,000 ML IV ONE (09:11)
[2023-11-21] MEDS: Prochlorperazine 10 MG/2 ML SDV IVPUSH ONE (09:11)
[2023-11-21] MEDS: diphenhydrAMINE 50 MG/ML SDV IVPUSH ONE (09:11)
[2023-11-21] MEDS: Sodium Chloride 0.9% 10 ML Syringe FLUSH PRN (09:12)
[2023-11-21] MEDS: Ketorolac 30 MG/ML SDV IVPUSH ONE ×2 (09:12→17:33)
[2023-11-21 09:14] LABS: BASOPHILS PERCENT AUTO 0.3 % (0.0-1.0); EOSINOPHILS ABSOLUTE AUTO 0.1 K/mm3 (0.0-0.4); EOSINOPHILS PERCENT AUTO 0.6 % (0.0-6.0); HEMATOCRIT 41.8 % (37.0-47.0); HEMOGLOBIN 14.7 gm/dl (12.0-16.0); IMMATURE GRAN ABSOLUTE AUTO 0.02 K/mm3 (0.00-0.05); IMMATURE GRAN PERCENT AUTO 0.2 % (0.0-0.4); LYMPHOCYTES ABSOLUTE AUTO 2.1 K/mm3 (1.0-4.8); LYMPHOCYTES PERCENT AUTO 20.2 % (24.0-44.0); MEAN CORPUSCULAR HEMOGLOBIN 31.7 pg (28.0-32.0); MEAN CORPUSCULAR HGB CONC 35.2 g/dl (32.0-36.0); MEAN CORPUSCULAR VOLUME 90.3 fl (83.0-99.0); MEAN PLATELET VOLUME 9.3 fl (9.4-12.3); MONOCYTES ABSOLUTE AUTO 0.9 K/mm3 (0.0-0.8); MONOCYTES PERCENT AUTO 8.9 % (0.0-8.0); NEUTROPHILS ABSOLUTE AUTO 7.4 K/mm3 (1.8-7.7); NEUTROPHILS PERCENT AUTO 69.8 % (41.0-71.0); PLATELET COUNT,PLT 254 K/mm3 (150-400); RED BLOOD CELL COUNT 4.63 M/mm3 (4.10-5.30); WHITE BLOOD CELL COUNT,WBC 10.55 K/mm3 (3.9-11.3)
[2023-11-21 10:01] LABS: A/G RATIO 0.9 (1-2); ALBUMIN 3.5 g/dl (3.4-5.0); ANION GAP 14.2 (5-15); BILIRUBIN TOTAL 0.5 mg/dL (0.2-1.0); BUN/CREATININE RATIO 15.6 (14-18); CALCIUM 9.2 mg/dL (8.5-10.1); CREATININE 0.9 mg/dL (0.55-1.02); EST CRCL DRUG DOSING (CG) 81.08 mL/min; MAGNESIUM 1.9 mg/dL (1.8-2.4); POTASSIUM,K 3.2 mEq/L (3.5-5.1); PROTEIN TOTAL,TP 7.3 g/dl (6.4-8.2)
[2023-11-21 10:56] LABS: APPEARANCE,URINE CLEAR (Clear); BILIRUBIN,URINE NEGATIVE (Negative); COLOR,URINE YELLOW (Yellow); GLUCOSE,URINE NEGATIVE (Negative); KETONES,URINE NEGATIVE (Negative); LEUKOCYTE ESTERASE,URINE TRACE (Negative); NITRITE,URINE NEGATIVE (Negative); OCCULT BLOOD,URINE 2+ (Negative); PROTEIN,URINE NEGATIVE (Negative); UROBILINOGEN,URINE 0.2 (0.2-1.0)
[2023-11-21 11:14] LABS: BACTERIA,URINE MODERATE /hpf (FEW); MUCUS,URINE FEW /hpf (FEW); RBC,URINE 20-30 /hpf (0-5)
[2023-11-21] MEDS: Potassium Chloride 20 MEQ Tab.ER PO ONE (11:40)
[2023-11-21] MEDS: cefTRIAXone 1 GM in Sodium Chloride 0.9% 100 ML IV ONE (11:53)
[2023-11-21] MEDS: Iopamidol 755 Mg/ML 100 ML Bottle IVPUSH ONE (12:29)
[2023-11-21] MEDS ORDERED: Sodium Chloride 0.9% 100 ML IV SCH (12:30)
[2023-11-21] MEDS: SUMAtriptan 6 MG/0.5 ML SDV SUBCUT ONE (13:15)
== END 2023-11-21 17:42 | disposition home or self-care (01) ==
LOC: JD.ED 08:37
DX: G43.909 Migraine, unspecified, not intractable, without status migrainosus (principal); J32.9 Chronic sinusitis, unspecified; E66.9 Obesity, unspecified; Z68.29 Body mass index [BMI] 29.0-29.9, adult; Z79.899 Other long term (current) drug therapy
CPT/HCPCS: 36415; 70486; 70496; 80053; 81001; 83735; 84703; 85025; 87086; 96365; 96372; 96375; 96376; 99284; A9270; J0696; J0780; J1200; J1885; J3030; J3490; J7030; Q9967